=== PATIENT | male | born 1985 | race African-American/Black ===

== ENCOUNTER 2020-03-11 10:54 | Inpatient (IN) | payer MEDICAID, OTHER ==
[~2020-03-11] VITALS: Ht 190.5 cm; Wt 83.1 kg
[2020-03-11 12:05] LABS: Basophils # (auto) 0 10 ^3/uL (0-0.2); Basophils % (auto) 0.7 % (0.0-2.0); Eosinophils # (auto) 0 10 ^3/uL (0-0.8); Eosinophils % (auto) 0.6 % (0.0-7.0); Hemoglobin 15.2 g/dL (13.5-17.5); Lymphocytes # (auto) 1.9 10 ^3/uL (0.4-5.4); Lymphocytes % (auto) 30.9 % (10.0-50.0); Mean Corpuscular Hemoglobin 32.5 pg (28.0-32.0); Mean Corpuscular Hgb Conc. 33.8 g/dL (32.0-36.0); Mean Corpuscular Volume 96.2 fL (80.0-100.0); Monocytes # (auto) 0.7 10 ^3/uL (0-1.3); Monocytes % (auto) 12.1 % (0.0-12.0); Neutrophils # (auto) 3.4 10 ^3/uL (1.6-8.6); Neutrophils % (auto) 55.7 % (37.0-80.0); Nucleated Red Blood Cells % 0.1 %; Platelet Count (auto) 189 10^3/uL (140-450); Red Blood Cells 4.68 10^6/uL (4.5-5.90); Red Cell Distribution Width 15.7 % (11.8-14.3); White Blood Cell 6.1 10^3/uL (4.4-10.8)
[2020-03-11 12:17] LABS: Albumin 3.8 g/dL (3.4-5.0); Calcium 9.9 mg/dL (8.5-10.1); Potassium 3.8 mmol/L (3.5-5.1)
[2020-03-11 12:21] LABS: BUN/Creatinine Ratio 10.9; Bilirubin, Total 0.7 mg/dL (0.2-1.0); Total Protein 8.8 g/dL (6.4-8.2)
[2020-03-11] MEDS ORDERED: PANTOPRAZOLE 40 MG/10 ML VIAL INJ IV STA (12:40)
[2020-03-11] MEDS ORDERED: SODIUM CHLORIDE 0.9% 1,000 ML IVB ONE (12:40)
[2020-03-11] MEDS ORDERED: ONDANSETRON HCL 4 MG/2 ML VIAL IV ONE (12:45)
[2020-03-11 12:54] LABS: Urine Bacteria NONE SEEN /hpf (None Seen); Urine Blood Negative /uL (Negative); Urine Hyaline Cast FEW /lpf (0 - 2); Urine Mucus FEW (None Seen); Urine Specific Gravity 1.021 (1.001-1.035); Urine WBC 2 /hpf (0 - 3)
[2020-03-11 13:29] LABS: Basophils # (auto) 0 10 ^3/uL (0-0.2); Basophils % (auto) 0.4 % (0.0-2.0); Eosinophils # (auto) 0 10 ^3/uL (0-0.8); Eosinophils % (auto) 0.6 % (0.0-7.0); Hematocrit 48.4 % (41.0-53.0); Hemoglobin 15.8 g/dL (13.5-17.5); Lymphocytes # (auto) 1.9 10 ^3/uL (0.4-5.4); Lymphocytes % (auto) 31.5 % (10.0-50.0); Mean Corpuscular Hemoglobin 32.5 pg (28.0-32.0); Mean Corpuscular Hgb Conc. 32.8 g/dL (32.0-36.0); Mean Corpuscular Volume 99.2 fL (80.0-100.0); Monocytes # (auto) 0.8 10 ^3/uL (0-1.3); Monocytes % (auto) 12.5 % (0.0-12.0); Neutrophils # (auto) 3.3 10 ^3/uL (1.6-8.6); Nucleated Red Blood Cells % 0.1 %; Platelet Count (auto) 162 10^3/uL (140-450); Red Blood Cells 4.88 10^6/uL (4.5-5.90); Red Cell Distribution Width 16.5 % (11.8-14.3); White Blood Cell 6.1 10^3/uL (4.4-10.8)
[2020-03-11 13:43] LABS: INR 1.13 (0.9-1.15); Partial Thromboplastin Time 33.3 sec (23.64-32.05)
[2020-03-11 13:50] LABS: Albumin 3.4 g/dL (3.4-5.0); Calcium 9.5 mg/dL (8.5-10.1); Magnesium 2.3 mg/dL (1.6-2.6); Potassium 3.7 mmol/L (3.5-5.1)
[2020-03-11 13:54] LABS: BUN/Creatinine Ratio 11.3; Bilirubin, Total 0.6 mg/dL (0.2-1.0); Total Protein 8.4 g/dL (6.4-8.2)
[2020-03-11] MEDS ORDERED: HYDROcodone-ACET 5/325MG TAB PO PRN (14:45)
[2020-03-11] MEDS ORDERED: DOCUSATE SOD 100 MG CAP PO PRN (14:45)
[2020-03-11] MEDS ORDERED: TEMAZEPAM 15 MG CAP PO PRN (14:45)
[2020-03-11] MEDS ORDERED: ACETAMINOPHEN 325 MG TAB PO PRN (14:45)
[2020-03-11] MEDS ORDERED: LORazepam 0.5 MG TAB PO PRN (14:45)
[2020-03-11] MEDS ORDERED: ONDANSETRON HCL 4 MG/2 ML VIAL IV PRN (14:45)
[2020-03-11] MEDS ORDERED: DEXTROSE (50%) 50ML SYRG IV ONE (15:00)
[2020-03-11] MEDS: SODIUM CHLORIDE 0.9% 1,000 ML IV SCH ×2 (15:28→22:46)
[2020-03-11] MEDS: metroNIDAZOLE 500MG/100ML 100 ML IV SCH ×2 (15:29→22:45)
[2020-03-11] MEDS ORDERED: NAPR220C PO (15:49)
[2020-03-11] MEDS ORDERED: IBUP200C3 PO (15:49)
[2020-03-11 17:00] VITALS: BP 122/69
--- NOTE | 2020-03-11 17:13 | NUR ---
Admit from ER to room 215A Assumed care of patient, awake and alert. No S/S of distress/SOB or pain. Bed is locked and in lowest position and call light is within reach. Instructed on POC and to call for assist PRN, and patient verbalized understanding. Will continue to monitor for changes Q1hr and PRN.
[2020-03-11] MEDS: MORPHINE SULF INJ 2 MG/ML SYRINGE 1ML IV PRN (20:18)
--- NOTE | 2020-03-11 20:28 | NUR ---
Received report from JUAN Zabala. pt AAOx4, relaxed with no s/s of distress at this time. Bed in lowest and locked position with rails up x2. Pt oriented to use of call light for assistance. Will continue to monitor Q1H and PRN t/o shift.
[2020-03-11 22:00] VITALS: BP 116/69
[2020-03-11] MEDS: PANTOPRAZOLE 40 MG/10 ML VIAL INJ IV SCH (22:44)
[2020-03-11] MEDS: SUCRALFATE 1 GM/10 ML ORAL SUSP PO SCH (22:45)
[2020-03-11 22:57] LABS: Amphetamine Screen, Urine NEGATIVE (NEGATIVE); Barbiturate Scree,Urine NEGATIVE (NEGATIVE); Benzodiazephine Screen, Urine NEGATIVE (NEGATIVE); Cannabinoid Screen, Urine POSITIVE (NEGATIVE); Cocaine Screen, Urine NEGATIVE (NEGATIVE); Opiate Scree,Urine NEGATIVE (NEGATIVE); Phencyclidine Screen, Urine NEGATIVE (NEGATIVE)
[2020-03-12] MEDS: MORPHINE SULF INJ 2 MG/ML SYRINGE 1ML IV PRN ×4 (01:54→15:03)
[2020-03-12 04:55] VITALS: BP 108/63
[2020-03-12] MEDS: metroNIDAZOLE 500MG/100ML 100 ML IV SCH ×2 (05:52→14:04)
[2020-03-12] MEDS: SODIUM CHLORIDE 0.9% 1,000 ML IV SCH ×4 (05:56→15:03)
[2020-03-12 06:22] LABS: Basophils # (auto) 0 10 ^3/uL (0-0.2); Basophils % (auto) 0.6 % (0.0-2.0); Eosinophils # (auto) 0.1 10 ^3/uL (0-0.8); Eosinophils % (auto) 1.7 % (0.0-7.0); Hematocrit 38.6 % (41.0-53.0); Hemoglobin 12.8 g/dL (13.5-17.5); Lymphocytes % (auto) 44.1 % (10.0-50.0); Mean Corpuscular Hemoglobin 32.2 pg (28.0-32.0); Mean Corpuscular Hgb Conc. 33.3 g/dL (32.0-36.0); Mean Corpuscular Volume 96.7 fL (80.0-100.0); Monocytes # (auto) 0.6 10 ^3/uL (0-1.3); Monocytes % (auto) 13.5 % (0.0-12.0); Neutrophils # (auto) 1.8 10 ^3/uL (1.6-8.6); Neutrophils % (auto) 40.1 % (37.0-80.0); Nucleated Red Blood Cells % 0.2 %; Platelet Count (auto) 132 10^3/uL (140-450); Red Blood Cells 3.99 10^6/uL (4.5-5.90); Red Cell Distribution Width 15.6 % (11.8-14.3); White Blood Cell 4.5 10^3/uL (4.4-10.8)
[2020-03-12] MEDS: SUCRALFATE 1 GM/10 ML ORAL SUSP PO SCH ×3 (06:29→17:29)
[2020-03-12 06:45] LABS: Potassium 3.3 mmol/L (3.5-5.1)
[2020-03-12 06:53] LABS: BUN/Creatinine Ratio 14.5; Calcium 8.5 mg/dL (8.5-10.1)
--- NOTE | 2020-03-12 08:00 | NUR ---
Opening Shift Note Assumed care of patient, awake and alert. No S/S of distress/SOB, 8/10 abdominal pain. Instructed on POC and to call for assist PRN, will continue to monitor for changes Q1hr and PRN.
[2020-03-12] MEDS: PANTOPRAZOLE 40 MG/10 ML VIAL INJ IV SCH (08:54)
[2020-03-12 09:00] VITALS: BP 106/62
[2020-03-12] MEDS: PANCREATIC ENZYMES 4200 UNIT CAP PO SCH ×3 (09:48→17:30)
[2020-03-12 09:56] LABS: Hepatitis A Total Antibody Negative
[2020-03-12 10:20] LABS: Hepatitis B Surface Antibody Positive
[2020-03-12 11:38] LABS: Hepatitis B Core Total AB Negative
[2020-03-12 11:39] LABS: Hepatitis B Surface Antigen Negative (Negative); Hepatitis C Antibody Negative (Negative)
--- NOTE | 2020-03-12 11:59 | NUR ---
Nutrition Consult/assessment Notes please see attached link for complete assessment. Est Energy needs IBW 87 [id number] kcals (25-30 kcal/kgIBW), Est Protein needs: 87-104 gms/day (1.0-1.2 gm/kgIBW). Will continue to monitor and reassess prn.. Addendum: 03/12/20 at [address] Amended: Links added.
[2020-03-12 13:00] VITALS: BP 108/73
--- NOTE | 2020-03-12 16:56 | NUR ---
Received a call from Janki Nava of GI updated on the the current status of the patient. Orders received to advance diet to full liquid tonight the NPO after midnight in preparation for EGD tomorrow, may give MOM 30mg once PO for constipation. Will continue care.
[2020-03-12 17:00] VITALS: BP 121/77
[2020-03-12] MEDS: MILK OF MAGNESIA 30ML SUSP PO ONE ×2 (17:00→17:29)
[2020-03-12] MEDS ORDERED: POTASSIUM CHL 20 Meq TABLET PO ONE (17:45)
--- NOTE | 2020-03-12 21:00 | NUR ---
IV LEAKING AND DC'D AT THIS TIME W/ CATH TIP INTACT.
[2020-03-12 22:00] VITALS: BP 127/72
--- NOTE | 2020-03-12 22:00 | NUR ---
PT IN THE SHOWER AT THIS TIME.
[2020-03-13] MEDS: SODIUM CHLORIDE 0.9% 1,000 ML IV SCH ×5 (00:15→16:36)
[2020-03-13] MEDS: metroNIDAZOLE 500MG/100ML 100 ML IV SCH ×3 (00:15→13:17)
[2020-03-13] MEDS: PANTOPRAZOLE 40 MG/10 ML VIAL INJ IV SCH ×2 (00:16→10:00)
[2020-03-13] MEDS: SUCRALFATE 1 GM/10 ML ORAL SUSP PO SCH ×4 (00:16→17:02)
[2020-03-13] MEDS: MORPHINE SULF INJ 2 MG/ML SYRINGE 1ML IV PRN ×2 (00:17→15:48)
--- NOTE | 2020-03-13 00:24 | NUR ---
NEW IV STARTED IN LEFT FA W/ 20G CATH. PT ATUL WELL.
[2020-03-13 05:00] VITALS: BP 113/77
--- NOTE | 2020-03-13 07:30 | NUR ---
Opening Shift Note Assumed care of patient, who is alert and oriented x4. Respirations are even and unlabored. No S/S of distress/SOB or pain. Bed is low, locked with 2x side rails up. Call light is within reach. Instructed on POC and to call for assist PRN, will continue to monitor for changes Q1hr and PRN.
[2020-03-13] MEDS: PANCREATIC ENZYMES 4200 UNIT CAP PO SCH ×3 (08:00→17:04)
[2020-03-13] MEDS ORDERED: FLUMAZENIL 0.1 MG/ML INJ 10ML MDV IV ONE (08:29)
[2020-03-13] MEDS ORDERED: LIDOCAINE VISCOUS 2% 15ML UD ONE (08:29)
[2020-03-13] MEDS ORDERED: NALOXONE HCL 0.4 MG/ML VIAL ONE (08:29)
[2020-03-13] MEDS ORDERED: SODIUM CHLORIDE LOCK 10 ML ONE (08:29)
[2020-03-13 09:00] VITALS: BP 114/75
--- NOTE | 2020-03-13 09:28 | NUR ---
Patient off unit Patient being taken to radiology for HIDA scan. IV patent and intact. No distress noted upon departure. Will continue to monitor.
--- NOTE | 2020-03-13 10:40 | NUR ---
Back in room No distress noted upon return.
--- NOTE | 2020-03-13 10:53 | NUR ---
EGD Patient taken to pre-op for scheduled EGD with Rony Davidson FA 20g IV is patent and intact. Consents signed and filed in chart. Checklist completed by NOC RN. No distress noted upon departure.
[2020-03-13] MEDS ORDERED: fentaNYL CITRATE 100 MCG/2 ML VL ONE (11:55)
[2020-03-13] MEDS ORDERED: MIDAZOLAM HCL 5 MG/ML-1ML VIAL ONE (11:55)
[2020-03-13] MEDS: MIDAZOLAM HCL 5 MG/ML-1ML VIAL ONE ×4 (12:07→12:14)
[2020-03-13] MEDS: fentaNYL CITRATE 100 MCG/2 ML VL ONE ×2 (12:07→12:10)
[2020-03-13] MEDS: diphenhdrAMINE HCL 50 MG/1 ML VL ONE ×2 (12:08→12:11)
--- NOTE | 2020-03-13 13:00 | NUR ---
S/p EGD S/p EGD with Rony Godoy. Patient alert and oriented, no acute distress noted or stated. Bed is low, locked with 2x side rails up. Call light is within reach. Bed alarm is on for safety. Call light is within reach. Will continue to monitor.
--- NOTE | 2020-03-13 16:50 | NUR ---
Dr. Lizabeth masters Received new orders to advance diet (see orders). Patient may be discharged if dinner is tolerated well. Will carry out orders.
[2020-03-13 17:00] VITALS: BP 118/80
[2020-03-13 17:38] VITALS: BP 118/80
--- NOTE | 2020-03-13 19:30 | NUR ---
Pt dc'd in stable cond and escorted out by staff via w/c. Pt verbalizes understanding that he will f/u with Dr Rony Godoy in 2 weeks.
== END 2020-03-13 19:30 | disposition home or self-care (01) | DRG 241 ==
LOC: ER 10:54 → OVERFLOW 10:55 → CENTRAL 16:56
PROVIDERS: ADMIT Hospitalist; ATTEND Hospitalist
PROC: 0DB88ZX Excision of Small Intestine, Via Natural or Artificial Opening Endoscopic, Diagnostic (ICD-10-PCS; 2020-03-13)
PROC: 0DB68ZX Excision of Stomach, Via Natural or Artificial Opening Endoscopic, Diagnostic (ICD-10-PCS; principal; 2020-03-13 12:00)
DX: K29.71 Gastritis, unspecified, with bleeding (principal); K29.81 Duodenitis with bleeding; E87.1 Hypo-osmolality and hyponatremia; K31.3 Pylorospasm, not elsewhere classified; K44.9 Diaphragmatic hernia without obstruction or gangrene; K86.0 Alcohol-induced chronic pancreatitis; B96.81 Helicobacter pylori [H. pylori] as the cause of diseases classified elsewhere; K25.4 Chronic or unspecified gastric ulcer with hemorrhage; K59.00 Constipation, unspecified; Z87.19 Personal history of other diseases of the digestive system; Z82.49 Family history of ischemic heart disease and other diseases of the circulatory system
CPT/HCPCS: 36415; 43239; 71045; 74176; 76705; 78226; 80048; 80053; 80061; 80307; 81001; 82728; 82962; 83690; 83735; 85025; 85610; 85730; 86677; 86704; 86706; 86708; 86803; 87340; 96361; 96374; 96375; C9113; G0378; J2250; J2405; J3490